=== PATIENT | male | born 1975 | race Caucasian/White ===

== ENCOUNTER 2020-05-15 00:21 | Emergency (ER) | payer BC ==
--- NOTE | 2020-05-15 00:48 | EDM.PDOC ---
ED HPI GENERAL MEDICAL PROBLEM - General Chief Complaint: Chest Pain Stated Complaint: SOB Time Seen by Provider: 05/15/20 00:38 Source of Information: Reports: Patient History Limitations: Reports: No Limitations - History of Present Illness INITIAL COMMENTS - FREE TEXT/NARRATIVE: 44-year-old male from [place] presents to the ED with a subjective sense of dyspnea and by history development of panic attack with a strong sense of doom within the last hour. Patient reports that he and his daughter drove up from [place] to lease picker one of his other daughters who is currently attending [facility] and is now off for the Rosalind break. There is bad weather coming in and he did not feel comfortable letting her drive home by herself. He states that he ate out at [employer] which did give him some degree of heartburn. He stopped at one of the local gas stations and got some Tums and Rolaids. Subsequently he took a Zantac tablet orally but then promptly vomited within 5 minutes. He does not believe that he aspirated any of the emesis. There was no blood in the emesis. He was just recently eaten food. He he felt short of breath earlier before supper as well. He has no cough or sputum production. His O2 sats on the monitor are 98%. He has no history of anxiety reactions. He recently had an echocardiogram on May 11 but has not got the results back. He did recently passed an ECG stress test in [place]. He has tested for Covid yesterday which was negative and tested a week prior and was negative. He has no fever chills or productive cough no nasal congestion or sinus congestion. Having some degree of heartburn in the center of his chest. No history of coronary disease. He used to chew tobacco but has recently disco ntinued this 4 months ago. This is caused him to gain some weight and have more heartburn. He is currently on no medications. Blood pressure in the clinic last week was 119/79. When he tried to lay down to sleep tonight he awoke very anxious and strong sense of dyspnea and feeling like he was going to meet his maker a strong sense of doom or panic attack. He is feeling somewhat better at this time. Onset: Today, Sudden Onset Date: 05/15/20 Onset Time: 00:00 Duration: Minutes:, Improving Location: Reports: Chest (Will has a sense of dyspnea and may be a mild central pressure discomfort in his chest like it is hard to get a full breath of air. He has no history of asthma.) Quality: Reports: Pressure Severity: Mild ([place].) Improves with: Reports: None Worsens with: Reports: None Context: Denies: Activity, Exercise, Lifting, Sick Contact, Trauma, Other Associated Symptoms: Reports: Chest Pain, Shortness of Breath (Objective dyspnea.). 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 Prior to that he had taken 2 doses of Pepto-Bismol about 30 minutes apart.) Chest Pain Score (Numeric/FACES): 2 - Related Data Allergies Allergy/AdvReac Type Severity Reaction Status Date / Time No Known Allergies Allergy Verified 05/15/20 00:35 Home Meds: Home Meds Omeprazole Magnesium [Prilosec Otc] 20 mg PO DAILY #42 tablet. 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 He has plates and screws in left distal radius and ulna. Previous arthroscopic repair of torn tendons in his right shoulder. High ankle sprain on his left ankle requiring orthopedic surgical management and subsequent removal of hardware. Torn tendon right thumb i.e. hyperextension extended this thumb and toward the thumb abductors.) Social & Family History - Tobacco Use Tobacco Use Within Last Twelve Months: Smokeless Tobacco (To chew tobacco up until about 4 months ago.) - Alcohol Use Alcohol Use History: Yes ED ROS GENERAL - Review of Systems Review Of Systems: See Below Constitutional: Denies: Fever, Chills, Malaise, Weakness, Decreased Appetite, Weight Loss HEENT: Reports: No Symptoms Respiratory: Reports: Shortness of Breath. Denies: Wheezing, Pleuritic Chest Pain, Cough, Sputum, Hemoptysis Cardiovascular: Reports: Chest Pain, Palpitations. Denies: Blood Pressure Problem (Central chest pressure discomfort.), Claudication, Dyspnea on Exertion, Edema, Lightheadedness, Orthopnea Endocrine: Reports: No Symptoms GI/Abdominal: Reports: Abdominal Pain, Nausea, Vomiting (Once tonight after supper and after taking Pepto-Bismol x2 and a Zantac tablet by mouth.). Denies: Constipation (Will has heartburn pit of his stomach), Diarrhea, Hematemesis : Reports: Frequency, Other Musculoskeletal: Reports: Other (Are usually x1. Hip low back neck shoulder pain.) Skin: Reports: No Symptoms Neurological: Reports: No Symptoms Psychiatric: Reports: No Symptoms Hematologic/Lymphatic: Reports: No Symptoms ED EXAM, GENERAL - Physical Exam Exam: See Below Exam Limited By: No Limitations General Appearance: Alert, WD/WN, No Apparent Distress, Other (Temperature is 36.1. Heart rate 86 in sinus respiratory is 20 with O2 sats of 99% room air BP 1 5626 but it probably came down to 151 101. We will continue to monitor this.) Eye Exam: Bilateral Eye: Normal Inspection (No scleral icterus or blepharal pallor.), PERRL Throat/Mouth: Normal Inspection, Normal Lips, Normal Oropharynx Head: Atraumatic, Normocephalic Neck: Normal Inspection, Supple, Non-Tender, Full Range of Motion Respiratory/Chest: Lungs Clear, Normal Breath Sounds, No Accessory Muscle Use, Chest Non-Tender, Respiratory Distress (Mild tachypnea at rest.) Cardiovascular: Normal Peripheral Pulses, Regular Rate, Rhythm, No Edema, No Gallop, No Murmur, No Rub, Other (Is a feeling of central chest discomfort.) Peripheral Pulses: 3+: Carotid (L), Carotid (R), Posterior Tibial (L), Posterior Tibial (R), Dorsalis Pedis (L), Dorsalis Pedis (R) GI/Abdominal: Normal Bowel Sounds, Soft, Non-Tender, No Organomegaly, No Abnormal Bruit, No Mass, Pelvis Stable, Other (Surgical scars.) Back Exam: Normal Inspection, Full Range of Motion. No: CVA Tenderness (L), CVA Tenderness (R) Extremities: Normal Inspection, Normal Range of Motion, Non-Tender, No Pedal Edema, Other (Labs are nontender without any edema. No clinical evidence of DVT in either lower extremity) Neurological: Alert, Oriented, CN II-XII Intact, Normal Cognition, Normal Gait Psychiatric: Anxious Skin Exam: Warm, Dry (Mildly anxious at this time.), Intact, Normal Color, No Rash #1 Interpretation EKG Date: 05/15/20 Time: 01:05 Rhythm: NSR Rate (Beats/Min): 68 [place]: Normal P-Wave: Enlarged QRS: Other (Consider mild left atrial and hypertrophy. RSR prime wave V1 V2 consider normal variant.) ST-T: Other (Diffuse early repolarization pattern.) QT: Normal EKG Interpretation Comments: Borderline ECG Course - Vital Signs Last Recorded V/S: Last Vital Signs Temp 36.1 C 05/15/20 00:26 Pulse 86 05/15/20 00:26 Resp 20 05/15/20 00:26 BP 156/126 H 05/15/20 00:26 Pulse Ox 98 05/15/20 01:52 - Orders/Labs/Meds Labs: Laboratory Tests 05/15/20 05/15/20 05/15/20 Range/Units 00:55 01:00 01:00 WBC 10.24 H (4.23-9.07) K/mm3 RBC 5.29 (4.63-6.08) M/mm3 Hgb 15.5 (13.7-17.5) gm/dl Hct 45.2 (40.1-51.0) % MCV 85.4 (79.0-92.2) fl MCH 29.3 (25.7-32.2) pg MCHC 34.3 (32.2-35.5) g/dl RDW Std Deviation 40.5 (35.1-43.9) fL Plt Count 234 (163-337) K/mm3 MPV 9.7 (9.4-12.3) fl Neut % (Auto) 64.1 (34.0-67.9) % Lymph % (Auto) 25.9 (21.8-53.1) % [place] % (Auto) 7.9 (5.3-12.2) % Eos % (Auto) 1.4 (0.8-7.0) Baso % (Auto) 0.2 (0.1-1.2) % Neut # (Auto) 6.57 H (1.78-5.38) K/mm3 Lymph # (Auto) 2.65 (1.32-3.57) K/mm3 Carlton # (Auto) 0.81 (0.30-0.82) K/mm3 Eos # (Auto) 0.14 (0.04-0.54) K/mm3 Baso # (Auto) 0.02 (0.01-0.08) K/mm3 D-Dimer, Quantitative 0.22 (0.19-0.50) mg/L Sodium (136-145) mEq/L Potassium (3.5-5.1) mEq/L Chloride (98-107) mEq/L Carbon Dioxide (21-32) mEq/L Anion Gap (5-15) BUN (7-18) mg/dL Creatinine (0.7-1.3) mg/dL Est Cr Clr Drug Dosing mL/min Estimated GFR (MDRD) (>60) mL/min BUN/Creatinine Ratio (14-18) Glucose (74-106) mg/dL Calcium (8.5-10.1) mg/dL Magnesium (1.8-2.4) mg/dl Total Bilirubin (0.2-1.0) mg/dL AST (15-37) U/L ALT (16-63) U/L Alkaline Phosphatase (46-116) U/L Lactate Dehydrogenase (85-227) U/L CK-MB (CK-2) (0-3.6) ng/ml Troponin I (0.00-0.056) ng/mL C-Reactive Protein (<1.0) mg/dL NT-Pro-B Natriuret Pep (0-125) pg/mL Total Protein (6.4-8.2) g/dl Albumin (3.4-5.0) g/dl Globulin gm/dL Albumin/Globulin Ratio (1-2) Urine Color Yellow (Yellow) Urine Appearance Clear (Clear) Urine pH 7.0 (5.0-8.0) Ur Specific [place] 1.015 (1.005-1.030) Urine Protein Negative (Negative) Urine Glucose (UA) Negative (Negative) Urine Ketones Negative (Negative) Urine Occult Blood Trace-intact H (Negative) Urine Nitrite Negative (Negative) Urine Bilirubin Negative (Negative) Urine Urobilinogen 0.2 (0.2-1.0) Ur Leukocyte Esterase Negative (Negative) Urine RBC 5-10 H (0-5) /hpf Urine WBC 0-5 (0-5) /hpf Ur Squamous Epith Cells 0-5 (0-5) /hpf Urine Bacteria Few (FEW) /hpf Urine Mucus Few (FEW) /hpf 05/15/20 05/15/20 Range/Units 01:00 01:00 WBC (4.23-9.07) K/mm3 RBC (4.63-6.08) M/mm3 Hgb (13.7-17.5) gm/dl Hct (40.1-51.0) % MCV (79.0-92.2) fl MCH (25.7-32.2) pg MCHC (32.2-35.5) g/dl RDW Std Deviation (35.1-43.9) fL Plt Count (163-337) K/mm3 MPV (9.4-12.3) fl Neut % (Auto) (34.0-67.9) % Lymph % (Auto) (21.8-53.1) % Carl[place] % (Auto) (5.3-12.2) % Eos % (Auto) (0.8-7.0) Baso % (Auto) (0.1-1.2) % Neut # (Auto) (1.78-5.38) K/mm3 Lymph # (Auto) (1.32-3.57) K/mm3 [place] # (Auto) (0.30-0.82) K/mm3 Eos # (Auto) (0.04-0.54) K/mm3 Baso # (Auto) (0.01-0.08) K/mm3 D-Dimer, Quantitative (0.19-0.50) mg/L Sodium 139 (136-145) mEq/L Potassium 3.6 (3.5-5.1) mEq/L Chloride 105 (98-107) mEq/L Carbon Dioxide 22 (21-32) mEq/L Anion Gap 15.6 H (5-15) BUN 12 (7-18) mg/dL Creatinine 1.2 (0.7-1.3) mg/dL Est Cr Clr Drug Dosing 85.32 mL/min Estimated GFR (MDRD) > 60 (>60) mL/min BUN/Creatinine Ratio 10.0 L (14-18) Glucose 100 (74-106) mg/dL Calcium 9.2 (8.5-10.1) mg/dL Magnesium 1.8 (1.8-2.4) mg/dl Total Bilirubin 0.3 (0.2-1.0) mg/dL AST 57 H (15-37) U/L ALT 106 H (16-63) U/L Alkaline Phosphatase 107 (46-116) U/L Lactate Dehydrogenase 200 (85-227) U/L CK-MB (CK-2) 1.0 (0-3.6) ng/ml Troponin I < 0.017 (0.00-0.056) ng/mL C-Reactive Protein 0.5 (<1.0) mg/dL NT-Pro-B Natriuret Pep 10 (0-125) pg/mL Total Protein 7.9 (6.4-8.2) g/dl Albumin 4.2 (3.4-5.0) g/dl Globulin 3.7 gm/dL Albumin/Globulin Ratio 1.1 (1-2) Urine Color (Yellow) Urine Appearance (Clear) Urine pH (5.0-8.0) Ur Specific [place] (1.005-1.030) Urine Protein (Negative) Urine Glucose (UA) (Negative) Urine Ketones (Negative) Urine Occult Blood (Negative) Urine Nitrite (Negative) Urine Bilirubin (Negative) Urine Urobilinogen (0.2-1.0) Ur Leukocyte Esterase (Negative) Urine RBC (0-5) /hpf Urine WBC (0-5) /hpf Ur Squamous Epith Cells (0-5) /hpf Urine Bacteria (FEW) /hpf Urine Mucus (FEW) /hpf Meds: Medications Discontinued Medications Generic Name Dose Route Start Last Admin Trade Name Freq PRN Reason Stop Dose Admin Al Hydroxide/Mg Hydroxide 30 ml 05/15/20 00:55 05/15/20 01:04 Mag-Al Plus PO 05/15/20 00:56 30 ml ONETIME ONE Administration Albuterol/Ipratropium 3 ml 05/15/20 01:51 05/15/20 01:59 Duoneb 3.0-0.5 Mg/3 Ml NEB 3 ml Q4H PRN Administration Shortness Of Breath/wheezing Dicyclomine HCl 20 mg 05/15/20 01:54 05/15/20 02:09 Bentyl PO 05/15/20 01:55 20 mg ONETIME ONE Administration Famotidine 20 mg 05/15/20 00:55 05/15/20 01:04 Pepcid PO 05/15/20 00:56 20 mg ONETIME ONE Administration Hyoscyamine 0.125 mg 05/15/20 02:51 05/15/20 03:04 Hyomax-Sl SL 05/15/20 02:52 0.125 mg ONETIME ONE Administration Dextrose/Sodium Chloride 1,000 mls @ 150 mls/hr 05/15/20 01:00 05/15/20 01:04 Dextrose 5%-Normal Saline IV 150 mls/hr ASDIRECTED MELISSA Administration Pantoprazole Sodium 40 mg 05/15/20 02:50 05/15/20 03:04 Protonix Iv IVPUSH 05/15/20 02:51 40 mg ONETIME ONE Administration - Radiology Interpretation Free Text/Narrative:: 44-year-old male presents to the ED for evaluation of subjective dyspnea. Patient states he has been feeling a little short of breath all day long. Worse this evening. He and his daughter recently drove here from [place] to help a another daughter leave [facility] and had back to [place] for the . Bad weather is coming in and he felt more comfortable coming up and facilitating the drive back to [place]. He states they noted [place] tonight. States he did develop heartburn after that meal. He went picked up some Pepto-Bismol took 2 doses 1/2-hour apart. Subsequently took Zantac 20 mg by mouth and then promptly vomited all of his supper. Since that time he is continued to have central chest discomfort and a pressure discomfort. He tried to go to bed but felt subjectively short of breath and awoke in a bit of a panic state certainly feeling into a strong sense of doom. He was not aware his heart was racing per se but certainly was short of breath. He does not believe that any acid irritated his vocal cords are choked or aspirated on the emesis. He is normally enjoying good health. Recently has had Covid testing x2 with a recent one done yesterday and negative report. Recent echocardiogram done on May 11 but he has yet to receive the results. ECG stress test he passed within the last 2 weeks as well. Not known to suffer from any anxiety disorder per se. Has a history of recurrent problems with GERD. History would suggest this is most likely GI in origin. His ECG shows sinus rhythm at 60/min with no signs of ischemia. And he will have a chest x-ray routine labs including a D-dimer and cardiac markers. But Maalox 30 mils per ora with Pepcid 20 mg p.o. - Re-Assessments/Exams Free Text/Narrative Re-Assessment/Exam: 05/15/20 01:45 White count is normal at 10.24 with 64% neutrophils on auto differential. Hemoglobin 15.5 with hematocrit of 45.2. Platelet count 234,000. D-dimer is normal at 0.22. Sodium 139 with a potassium of 3.6. Chloride 105 with a bicarb of 22. Anion gap is minimally elevated at 15.6. BUN is 12 with a creatinine of 1.2 and a GFR greater than 60. Glucose 100. Calcium 9.2. Magnesium 1.8. Bilirubin is 0.3 AST mildly elevated at 57 and ALT mildly elevated at 106. Alk phosphatase is normal at 107. LDH is 200. CK-MB fraction 1.0 with a troponin I of less than 0.017. C-reactive protein 0.5. BNP is 10. Total protein 7.9 with an albumin fraction of 4.2. Urinalysis shows trace occult blood and 5-10 RBCs per high-power field. No signs of infection. Chest x-ray done portably reveals clear lung watson. No pleural effusions no pneumothorax. Cardiac silhouette upper limits of normal in size. No evidence of hiatal hernia on AP view. 05/15/20 01:52 have discussed the findings of the above labs and chest x-ray wit h the patient. His O2 sats remained at 99% and his respiratory rate is down to 16/min. Feels raw him the center of his chest. I am going to give him a DuoNeb treatment to see if this makes any difference in terms of relieving upper airway bronchospasm. I still feel strongly it is most likely related to his esophagus with esophageal spasm. If the DuoNeb does not help at all we will place him on Bentyl 20 mg tablet by mouth. Reports that the Maalox and Pepcid did seem to cool things off a bit in his chest. 05/15/20 02:52 and is still a little leery and has some discomfort in his upper anterior chest. The DuoNeb did not seem to help much at all. I did give him Bentyl 20 mg p.o. and I am now going to give him Levsin 0.125 mg sublingual to see if it would relieve some of the suspected esophageal spasm. I am also been given Protonix 40 mg IV. Further history reveals that he sleeps for the most part in office sitting up 45 degree position. Otherwise he experiences severe esophageal epigastric discomfort and reflux. Patient clinically likely has a hiatal hernia. He needs to follow-up with his doctor at home and have an upper GI endoscopy performed. In the meantime I am going to suggest that he stay on Prilosec 20 mg once daily every night at bedtime. 05/15/20 04:07 has been sleeping for the last hour or so. He states he does feel better. He is going to call for a ride from one of his daughters to come and pick him up at this time. Discharge notes written. Departure - Departure Time of Disposition: 04:08 Disposition: Home, Self-Care 01 Condition: Fair Clinical Impression: Non-cardiac chest pain GERD with esophagitis Qualifiers: Esophagitis bleeding: without hemorrhage Qualified Code(s): K21.00 - Gastro- esophageal reflux disease with esophagitis, without bleeding Prescriptions: Omeprazole Magnesium [Prilosec Otc] 20 mg PO DAILY #42 tablet.dr Instructions: Heartburn, [id number] Referrals: PCP,Not In Area [Primary Care Provider] - Forms: ED Department Discharge Additional Instructions: Evaluation in the emergency room tonight in regards to development of significant retrosternal chest pressure discomfort starting in the pit of your stomach and radiating up somewhat towards your neck. This started after developing heartburn and dyspepsia after eating at [employer] last evening. The spicy food bothers you enough to stop a local gas station and find some Pepto-Bismol which she took a dose x230 minutes apart. Vomiting occurred after taking Zantac tablet orally. Chest pain and discomfort started after the vomiting. Work-up in the ED revealed a normal ECG. Normal chest x-ray lab work revealed no evidence of heart related illness and no blood clot in the lung. Current pressure in the chest appears to be secondary to esophageal spasm and irritation. The history suggest you likely have significant reflux occurring during the night when you are sleeping with irritation of the lower one third of the food pipe. You may well have a sliding hiatal hernia as well. No serious abnormalities were identified on examination tonight. I would suggest starting Prilosec 20 mg every night at bedtime. First night would be tonight. I would suggest follow-up with your doctor when you get back home to arrange for an upper GI endoscopy to explore your food pipe and stomach to identify what is going on. Especially in light of recent normal cardiac work-up. Sepsis Event Note (ED) - Evaluation Sepsis Screening Result: No Definite Risk
[2020-05-15] MEDS ORDERED: Aluminum Hydroxide/Magnesium Hydroxide/Simethicone Susp 30 ML Cup PO ONE (00:55)
[2020-05-15] MEDS ORDERED: Famotidine 20 MG Tab PO ONE (00:55)
[2020-05-15] MEDS ORDERED: Dextrose 5%-0.9% NaCl 1,000 ML IV SCH (01:00)
[2020-05-15] MEDS ORDERED: Albuterol/Ipratropium 3.0-0.5 MG/3 ML Neb Soln NEB PRN (01:51)
[2020-05-15] MEDS ORDERED: Dicyclomine 10 MG Cap PO ONE (01:54)
[2020-05-15] MEDS ORDERED: Pantoprazole 40 MG Vial IVPUSH ONE (02:50)
[2020-05-15] MEDS ORDERED: Hyoscyamine 0.125 MG Tab.SL SL ONE (02:51)
--- NOTE | 2020-05-15 10:29 | CR ---
Chest: Portable view of the chest was obtained. Comparison: No previous chest imaging is available. Minimal linear density is seen within both lung bases. Lungs otherwise are clear. Heart size and mediastinum are within normal limits for portable technique. No gross bony abnormality is appreciated. Impression: 1. Minimal atelectasis or scarring within both lung bases. 2. Nothing acute is otherwise seen on portable chest x-ray. Diagnostic code #2
== END 2020-05-15 04:25 | disposition home or self-care (01) ==
LOC: JD.ED 00:21
DX: K21.00 Gastro-esophageal reflux disease with esophagitis, without bleeding (principal); R79.89 Other specified abnormal findings of blood chemistry; F17.220 Nicotine dependence, chewing tobacco, uncomplicated
CPT/HCPCS: 36415; 71045; 80053; 81001; 82553; 83615; 83735; 83880; 84484; 85025; 85379; 86140; 93005; 94640; 96374; 99285; A9270; C9113; J7042; 93010; 99284; J7620-GY